=== PATIENT | female | born 1970 | race Two or more races ===

== ENCOUNTER 2021-10-22 19:57 | Emergency (ER) | payer MEDICAID ==
[~2021-10-22] VITALS: Ht 167.6 cm; Wt 68.0 kg
[2021-10-22] MEDS ORDERED: SODIUM CHLORIDE 0.9% 1,000 ML IV ONE ×2 (23:30)
[2021-10-22 23:57] VITALS: BP 174/98
[2021-10-23] MEDS ORDERED: FLUORESCEIN SOD OPTH TEST STRIP EACHEYE ONE (00:15)
[2021-10-23] MEDS ORDERED: TETRACAINE HCL 0.5% OPTH(EYE) SOLN 4ML EACHEYE ONE (00:15)
== END 2021-10-23 02:01 | disposition home or self-care (01) ==
LOC: ER 19:59
DX: S05.01XA Injury of conjunctiva and corneal abrasion without foreign body, right eye, initial encounter (principal); X58.XXXA Exposure to other specified factors, initial encounter; Y93.89 Activity, other specified; Y92.89 Other specified places as the place of occurrence of the external cause; Y99.8 Other external cause status
CPT/HCPCS: 96360; 99283; J7030

== ENCOUNTER 2023-04-20 21:29 | Emergency (ER) | payer MEDICAID ==
[~2023-04-20] VITALS: Ht 165.1 cm; Wt 72.0 kg
[2023-04-21] MEDS ORDERED: CYCL-837 PO (02:21)
[2023-04-21] MEDS ORDERED: KETOROLAC TROMETH 60MG/2ML VIAL IM ONE (02:30)
[2023-04-21 07:39] VITALS: BP 124/91
== END 2023-04-21 06:36 | disposition home or self-care (01) ==
LOC: ER 21:33
DX: S39.012A Strain of muscle, fascia and tendon of lower back, initial encounter (principal); G89.29 Other chronic pain; Z90.710 Acquired absence of both cervix and uterus; Z79.899 Other long term (current) drug therapy; X58.XXXA Exposure to other specified factors, initial encounter; Y93.89 Activity, other specified; Y92.89 Other specified places as the place of occurrence of the external cause; Y99.8 Other external cause status
CPT/HCPCS: 96372; 99283; J1885